=== PATIENT | male | born 1965 | race Caucasian/White ===

== ENCOUNTER → 2018-05-11 16:46 | Outpatient (CLI) | payer BC, SELFPAY ==
[2018-05-11 17:36] LABS: Add Manual Diff / Slide Review NO; Basophils Percent Auto 0.7 % (0-2); Eosinophils Percent Auto 1.5 % (2-4); Hematocrit 52.1 % (41-53); Hemoglobin 17.7 g/dL (13.5-17.5); Lymphocytes Percent Auto 32.5 % (25-40); Mean Corpuscular HGB Conc 34.1 % (30-36); Mean Corpuscular Hemoglobin 30.8 PG (26-34); Mean Corpuscular Volume 90.4 fL (80-100); Monocytes Percent Auto 8.3 % (3-14); Neutrophils Absolute Auto 6700 /uL (1500-7000); Platelet Count 267 X10^3/uL (150-400); Red Blood Cell Count 5.76 X10^6/uL (4.5-5.9); Red Cell Distribution Width 13.8 % (11.6-14.8); White Blood Cell Count 11.8 X10^3/uL (4.5-11.0)
[2018-05-11 17:47] LABS: Alanine Aminotransferase 45 IU/L (21-72); Albumin 4.5 g/dL (3.5-5.0); Albumin Globulin Ratio 1.2 (1.0-2.8); Alkaline Phosphatase 106 U/L (38-126); Aspartate Aminotransferase 32 IU/L (17-59); Bilirubin Total 0.5 mg/dL (0.2-1.3); Blood Urea Nitrogen 24 mg/dL (9-20); Calcium 9.6 mg/dL (8.4-10.2); Carbon Dioxide 27 mmol/L (22-32); Chloride 104 mmol/L (98-107); Estimated Glomerular Filt Rate > 60.0 mL/min (>60); Globulin 3.7 g/dL (1.7-4.1); Glucose 107 mg/dL (70-100); HEMOLYSIS < 15 (0-50); Potassium 4.3 mmol/L (3.4-5.1); Sodium 143 mmol/L (137-145); Total Protein 8.2 g/dL (6.3-8.2)
[2018-05-11 18:23] LABS: Erythrocyte Sedimentation Rate 2 MM/HR (0-15)
[2018-05-11 18:54] LABS: Thyroid Stimulating Hormone 1.99 uIU/mL (0.47-4.68)
== END ==
PROVIDERS: Visit Provider Family Medicine
DX: R53.83 Other fatigue (principal)
CPT/HCPCS: 36415; 80053; 84443; 85025; 85651

== ENCOUNTER → 2019-04-02 14:32 | Outpatient (CLI) | payer BC, SELFPAY ==
--- NOTE | 2019-04-02 | DI.RAD.S_ITS ---
PROCEDURE: XR THORACIC SPINE 3V INDICATIONS: BACK PAIN TECHNIQUE: 3 views of the thoracic spine were acquired. COMPARISON: None. FINDINGS: Bones: No fractures or dislocations. No suspicious bony lesions. 12 pairs of ribs are noted, and appear intact where visualized. Soft tissues: No paravertebral stripe thickening. IMPRESSION: Moderately severe to severe degenerative disc disease and osteophyte formation is noted along the thoracic spine but no trauma is found. Dictated by: Rad Ojeda M.D. on 04/02/2019 at 15:37 Approved by: Rad Ojeda M.D. on 04/02/2019 at 15:38
== END ==
PROVIDERS: PCP Family Medicine; Visit Provider Family Medicine
DX: M51.34 Other intervertebral disc degeneration, thoracic region (principal)
CPT/HCPCS: 72072